=== PATIENT | female | born 1985 | race African-American/Black ===

== ENCOUNTER 2023-07-13 16:42 | Emergency (ER) | payer SELFPAY ==
[~2023-07-13] VITALS: Ht 165.1 cm; Wt 80.0 kg
[2023-07-13 16:56] VITALS: O2SAT 100
[2023-07-13] MEDS ORDERED: DIPHENHYDRAMINE 50MG CAPSULE PO ONE (17:30)
[2023-07-13] MEDS: FAMOTIDINE 20MG TABLET PO ONE (18:17)
[2023-07-13] MEDS: PREDNISONE 20MG TABLET PO ONE (18:17)
[2023-07-13] MEDS: DIPHENHYDRAMINE 25MG CAPSULE PO NR (18:23)
[2023-07-13] MEDS ORDERED: P20 MT (19:39)
[2023-07-13] MEDS ORDERED: B50 MT (19:39)
[2023-07-13] MEDS ORDERED: FAMO-134 MT (19:39)
[2023-07-13 20:10] VITALS: BP 132/74; PULSE 88; RESP 16; TEMP 98.7
== END 2023-07-13 20:11 | disposition home or self-care (01) ==
LOC: ER 16:42
DX: T78.40XA Allergy, unspecified, initial encounter (principal); X58.XXXA Exposure to other specified factors, initial encounter
CPT/HCPCS: 99283; J7512; Q0163